=== PATIENT | male | born 1960 | race Caucasian/White ===

== ENCOUNTER 2019-03-07 18:31 | Emergency (ER) | payer SELFPAY ==
[~2019-03-07] VITALS: Ht 175.3 cm; Wt 90.7 kg
[2019-03-07] MEDS ORDERED: CLIN150C14 PO (18:52)
--- NOTE | 2019-03-07 18:52 | PHYS DOC ---
Adult General Chief Complaint Chief Complaint: INSECT BITE HPI HPI Patient is a 58 year old male presents to the ER with an insect bite to his abdomen. He states he was bit yesterday and has redness around the bite. States that he put alcohol on the wound, and his pain is 8 out of 10 in severity. Has not taken any other medicine at home for the pain. (JENNIFER HANSON APRN) Review of Systems Review of Systems Constitutional: Denies fever or chills [] Eyes: Denies change in visual acuity, redness, or eye pain [] HENT: Denies nasal congestion or sore throat [] Respiratory: Denies cough or shortness of breath [] Cardiovascular: No additional information not addressed in HPI [] GI: Denies abdominal pain, nausea, vomiting, bloody stools or diarrhea [] : Denies dysuria or hematuria [] Musculoskeletal: Denies back pain or joint pain [] Integument: Reports insect bite to the abdomen. Neurologic: Denies headache, focal weakness or sensory changes [] Endocrine: Denies polyuria or polydipsia [] Complete systems were reviewed and found to be within normal limits, except as documented in this note. (JENNIFER HANSON APRN) Current Medications Current Medications Current Medications Medications (Trade) Dose Ordered Sig/Lamont Start Time Stop Time Status Last Admin Dose Admin Clindamycin HCl (Cleocin) 450 mg 1X ONCE 03/07/19 19:00 03/07/19 19:01 DC 03/07/19 19:08 450 MG Ketorolac Tromethamine (Toradol Im) 30 mg 1X ONCE 03/07/19 19:00 03/07/19 19:01 DC 03/07/19 19:07 30 MG (SHADIA HUDSON MD) Allergies Allergies Allergies Coded Allergies Type Severity Reaction Last Updated Verified No Known Drug Allergies 03/07/19 No (SHADIA HUDSON MD) Physical Exam Physical Exam Constitutional: Well developed, well nourished, no acute distress, non-toxic appearance. [] HENT: Normocephalic, atraumatic, bilateral external ears normal, oropharynx moist, no oral exudates, nose normal. [] Eyes: PERRLA, EOMI, conjunctiva normal, no discharge. [] Neck: Normal range of motion, no tenderness, supple, no stridor. [] Cardiovascular:Heart rate regular rhythm, no murmur [] Lungs & Thorax: Bilateral breath sounds clear to auscultation [] Abdomen: Bowel sounds normal, soft, no tenderness, no masses, no pulsatile masses. [] Skin: erythema to the left lower abdomen about 8 cm in diameter, with the head of a insect bite. Back: No tenderness, no CVA tenderness. [] Extremities: No tenderness, no cyanosis, no clubbing, ROM intact, no edema. [] Neurologic: Alert and oriented X 3, normal motor function, normal sensory fu nction, no focal deficits noted. [] Psychologic: Affect normal, judgement normal, mood normal. [] (JENNIFER HANSON APRN) Current Patient Data Vital Signs Vital Signs Date Time Temp Pulse Resp B/P (MAP) Pulse Ox O2 Delivery O2 Flow Rate FiO2 03/07/19 18:54 97.9 74 16 143/83 (103) 97 Room Air 97.9 (SHADIA UHDSON MD) EKG EKG [] (JENNIFER HANSON APRN) Radiology/Procedures Radiology/Procedures [] (JENNIFER HANSON APRN) Course & Med Decision Making Course & Med Decision Making Pertinent Labs and Imaging studies reviewed. (See chart for details) Will give Toradol for pain, and Clindamycin script. Will vincent wound in ER. (JENNIFER HANSON APRN) Course & Med Decision Making Staff Physician Addendum: I was working in the ER during the course of this patient's visit. I was available for consultation as needed, but I was not directly involved in the care of this patient. (SHADIA HUDSON MD) Dragon Disclaimer Dragon Disclaimer This electronic medical record was generated, in whole or in part, using a voice recognition dictation system. (JENNIFER HANSON APRN) Departure Departure Impression: Primary Impression: Cellulitis Disposition: 01 HOME, SELF-CARE Condition: STABLE Patient Instructions: Cellulitis Additional Instructions: Thank you for visiting [facility]. We appreciate you trusting us with your care. If any additional problems come up don't hesitate to return to visit us. Please follow up with your primary care provider so they can plan additional care if needed and know about the problem that you had. If symptoms worsen come back to the Emergency Department. Any concerning symptoms that start such as chest pain, shortness of air, weakness or numbness on one side of the body, running high fevers or any other concerning symptoms return to the ER. If cellulitis gets worse please come back to ER. You have been prescribed an antibiotic today to help fight your infection. Please take all of the antibiotic as directed. If after 48 hours the infection is not improving, please return for more care. If the infection worsens, return to ER for additional care. Scripts Clindamycin Hcl (CLINDAMYCIN HCL) 150 Mg Capsule 450 MG PO TID for 7 Days, #63 CAP Prov: JENNIFER HANSON APRN 03/07/19 Problem Qualifiers Primary Impression: Cellulitis Site of cellulitis: trunk Site of cellulitis of trunk: abdominal wall Qualified Codes: L03.311 - Cellulitis of abdominal wall JENNIFER HANSON APRN Mar 07, 2019 18:52 SHADIA HUDSON MD Mar 08, 2019 04:57
[2019-03-07 18:54] VITALS: BP 143/83
[2019-03-07] MEDS ORDERED: CLINDAMYCIN HCL 150 MG CAPSULE. PO ONE (19:00)
[2019-03-07] MEDS ORDERED: KETOROLAC 60 MG/2 ML VIAL. IM ONE (19:00)
== END 2019-03-07 19:16 | disposition home or self-care (01) ==
LOC: ER 18:31
DX: L03.311 Cellulitis of abdominal wall (principal); W57.XXXA Bitten or stung by nonvenomous insect and other nonvenomous arthropods, initial encounter; Y93.89 Activity, other specified; Y92.89 Other specified places as the place of occurrence of the external cause; Y99.8 Other external cause status
CPT/HCPCS: 96372; 99283; J1885

== ENCOUNTER 2019-06-14 14:12 | Emergency (ER) | payer SELFPAY ==
[~2019-06-14] VITALS: Ht 170.2 cm; Wt 81.6 kg
[~2019-06-14 14:12] MED LIST: CLIN150C14 PO
[2019-06-14 14:24] VITALS: BP 181/90
[2019-06-14] MEDS ORDERED: HYDR-3164 PO (15:14)
[2019-06-14] MEDS ORDERED: CIPR7.5D RIGHT EAR (15:14)
[2019-06-14] MEDS ORDERED: AMOX500C PO (15:15)
--- NOTE | 2019-06-14 15:15 | PHYS DOC ---
Past Medical History Past Medical History: No Pertinent History (ARIAS YEE APRN) Past Surgical History: No Surgical History (ARIAS YEE APRN) Alcohol Use: None Drug Use: None (ARIAS YEE APRN) Attending Signature I have participated in the care of this patient and I have reviewed and agree with all pertinent clinical information above including history, exam, and recommendations. (ARASELI SEGOVIA MD) Adult General Chief Complaint Chief Complaint: EARACHE/EAR PAIN HPI HPI Patient is a 59 year old Male who presents with coughing, stuffy nose, right ear pain for the last 2 days. Patient denies fevers, nausea, vomiting, abdominal pain, cough. Patient rates his pain at a 8/10. (ARIAS YEE APRN) Review of Systems Review of Systems HENT: Right ear pain, nasal congestion or denies sore throat [] All other systems were reviewed and found to be within normal limits, except as documented in this note. (ARIAS YEE APRN) Allergies Allergies Allergies Coded Allergies Type Severity Reaction Last Updated Verified No Known Drug Allergies 03/07/19 No (ARASELI SEGOVIA MD) Physical Exam Physical Exam Constitutional: Well developed, well nourished, no acute distress, non-toxic appearance. [] HENT: Normocephalic, atraumatic, bilateral external ears normal, oropharynx moist, no oral exudates, nose normal. Right ear tenderness and swelling.[] Eyes: PERRLA, EOMI, conjunctiva normal, no discharge. [] Neck: Normal range of motion, no tenderness, supple, no stridor. [] Lungs & Thorax: Bilateral breath sounds clear to auscultation [] Abdomen: Bowel sounds normal, soft, no tenderness, no masses, no pulsatile masses. [] Skin: Warm, dry, no erythema, no rash. [] Neurologic: Alert and oriented X 3, normal motor function, normal sensory function, no focal deficits noted. [] Psychologic: Affect normal, judgement normal, mood normal. [] (ARIAS YEE APRN) Current Patient Data Vital Signs Vital Signs Date Time Temp Pulse Resp B/P (MAP) Pulse Ox O2 Delivery O2 Flow Rate FiO2 06/14/19 14:24 98.2 84 18 181/90 (120) 97 Room Air 98.2 (ARASELI SEGOVIA MD) EKG EKG [] (ARIAS YEE APRN) Radiology/Procedures Radiology/Procedures [] (ARIAS YEE APRN) Course & Med Decision Making Course & Med Decision Making Patient has right ear otitis media externa. I am unable to examine the tympanic due to swelling of the ear canal. No drainage is seen coming from the ear. Throat is pink, no swelling, or exudates. Afebrile. Lungs are clear to auscultation all lobes. Patient denies any nausea or vomiting. Speaks in full clear sentences. Skin pink warm and dry. Mucous membranes are moist. (ARIAS YEE APRN) Dragon Disclaimer Dragon Disclaimer This electronic medical record was generated, in whole or in part, using a voice recognition dictation system. (ARIAS YEE APRN) Departure Departure Impression: Primary Impression: Otitis externa Disposition: HOME, SELF-CARE Condition: STABLE Referrals: NO PCP (PCP) Patient Instructions: Otitis Externa Additional Instructions: Follow up with primary care provider. Use medications as prescribed. Scripts Amoxicillin (AMOXICILLIN) 500 Mg Capsule 1 CAP PO BID, #20 CAP Prov: ARIAS YEE APRN 06/14/19 Hydrocodone/Apap 5-325 (NORCO 5-325 TABLET) 1 Each Tablet 1 TAB PO PRN Q6HRS PRN for PAIN, #8 TAB 0 Refills Prov: ARIAS YEE APRN 06/14/19 Ciprofloxacin Hcl/Dexameth (CIPRODEX OTIC SUSPENSION) 7.5 Ml Drops.susp 4 DROP RIGHT EAR BID, #1 BOTTLE Prov: ARIAS YEE APRN 06/14/19 Problem Qualifiers Primary Impression: Otitis externa Otitis externa type: unspecified type Chronicity: acute Laterality: r ight Qualified Codes: H60.501 - Unspecified acute noninfective otitis externa, right ear ARIAS YEE APRN Jun 14, 2019 15:15 ARASELI SEGOVIA MD Jun 15, 2019 06:06
== END 2019-06-14 15:23 | disposition home or self-care (01) ==
LOC: ER 14:12
DX: H60.501 Unspecified acute noninfective otitis externa, right ear (principal)
CPT/HCPCS: 99283

== ENCOUNTER 2020-05-23 17:46 | Emergency (ER) | payer SELFPAY ==
[~2020-05-23] VITALS: Ht 167.6 cm; Wt 77.0 kg
[~2020-05-23 17:46] MED LIST changes: +AMOX500C PO; +CIPR7.5D RIGHT EAR; +HYDR-3164 PO
--- NOTE | 2020-05-23 19:18 | PHYS DOC ---
Past Medical History Past Medical History: No Pertinent History Past Surgical History: Appendectomy Smoking Status: Current Every Day Smoker Alcohol Use: None Drug Use: None General Adult EDM: Chief Complaint: UPPER EXTREMITY PAIN HPI: HPI: Patient is a 60 year old male who presents with 2 weeks of bilateral hand swelling, skin color change and coolness. 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 Patient states his only history is an appendectomy and smoker. He states that the pain is a cramping and slightly tingly feeling. He rates his pain a 10 out of 10 at this time. He states he is having a hard time even bending his fingers. Review of Systems: Review of Systems: Constitutional: Denies fever or chills. [] Eyes: Denies change in visual acuity. [] HENT: Denies nasal congestion or sore throat. [] Respiratory: Denies cough or shortness of breath. [] Cardiovascular: Denies chest pain. + Bilateral hand edema. [] GI: Denies abdominal pain, nausea, vomiting, bloody stools or diarrhea. [] : Denies dysuria. [] Musculoskeletal: Denies back pain or joint pain. + Bilateral hands [] Integument: Denies rash. + Bilateral hand skin color change. [] Neurologic: Denies headache, focal weakness or sensory changes. + Bilateral hand tingling and coolness. [] Endocrine: Denies polyuria or polydipsia. [] Lymphatic: Denies swollen glands. [] Psychiatric: Denies depression or anxiety. [] Heart Score: Risk Factors: Risk Factors: DM, Current or recent (<one month) smoker, HTN, HLP, family history of CAD, obesity. Risk Scores: Score 0 - 3: 2.5% MACE over next 6 weeks - Discharge Home Score 4 - 6: 20.3% MACE over next 6 weeks - Admit for Clinical Observation Score 7 - 10: 72.7% MACE over next 6 weeks - Early Invasive Strategies Allergies: Allergies: Allergies Coded Allergies Type Severity Reaction Last Updated Verified No Known Drug Allergies 03/07/19 No Physical Exam: PE: Constitutional: Well developed, well nourished, no acute distress, non-toxic appearance. [] HENT: Normocephalic, atraumatic, bilateral external ears normal, oropharynx moist, no oral exudates, nose normal. [] Eyes: PERRLA, EOMI, conjunctiva normal, no discharge. [] Neck: Normal range of motion, no tenderness, supple, no stridor. [] Cardiovascular:Heart rate regular rhythm, no murmur [] Lungs & Thorax: Bilateral breath sounds clear to auscultation [] Abdomen: Bowel sounds normal, soft, no tenderness, no masses, no pulsatile masses. [] Skin: Warm, dry, no erythema, no rash. Bilateral hands dusky in color. [] Back: No tenderness, no CVA tenderness. [] Extremities: No tenderness, no cyanosis, no clubbing, ROM intact, bilateral hand dusky, 2+ edema. [] Neurologic: Alert and oriented X 3, normal motor function, normal sensory function, no focal deficits noted. Bilateral hand tingling. [] Psychologic: Affect normal, judgement normal, mood normal. [] Current Patient Data: Vital Signs: Vital Signs Date Time Temp Pulse Resp B/P (MAP) Pulse Ox O2 Delivery O2 Flow Rate FiO2 05/23/20 18:00 98.0 80 18 126/76 (93) 99 Room Air 98.0 EKG: EKG: [] Radiology/Procedures: Radiology/Procedures: [] Impression: [facility] [address] [place], [place] [id number] IMAGING REPORT Signed PATIENT: LEOBARDO IBANEZ ACCOUNT: [id number] : 1960 LOCATION: ER AGE: 60 SEX: M EXAM STATUS: REG ER ORD. PHYSICIAN: ARIAS YEE APRN REASON: dusky, swelling PROCEDURE: UPPER EXT ARTERIAL BILAT INDICATION: Reason: dusky, swelling / Spl. Instructions: / History: COMPARISON: None. FINDINGS: Spectral Doppler, color and grayscale ultrasound images are obtained of the bilateral arm arterial system. Vascular flow seen in the bilateral subclavian, axillary, brachial, radial and ulnar arteries without occlusion or high-grade stenosis. Calcific atherosclerosis is seen. IMPRESSION: * No high-grade stenosis or occlusion of the major bilateral arm arterial structures. Electronically signed by: Nader Car MD (05/23/2020 8:32 PM) [id number] DICTATED and SIGNED BY: NADER CAR MD DATE: 05/23/202031 Course & Med Decision Making: Course & Med Decision Making Pertinent Labs and Imaging studies reviewed. (See chart for details) See HPI. Bilateral hands 2+ swelling, dusky in color, radial pulses present, cap refill sluggish. No other swelling of the arms. Alert and oriented x4. Ambulatory with a steady gait. Speaks in full clear sentences. She has continue to use his hands and work. He states that it is hard for him to make a tight fist due to the swelling and some of the pain. He does state that the pain at times will be intermittent. There is no tenderness with examination. Ultrasound shows no acute findings. Blood work is unremarkable. Apossible diagnosis is Thoracic outlet syndrome. I have spoken to Dr Fang concerning this patients findings and care plan. He states to have him follow up with a primary care provider. [] Matthew Disclaimer: Matthew Disclaimer: This electronic medical record was generated, in whole or in part, using a voice recognition dictation system. Departure Departure Impression: Primary Impression: Bilateral hand swelling Disposition: HOME, SELF-CARE Condition: STABLE Referrals: NO PCP (PCP) Patient Instructions: Thoracic Outlet Syndrome with [facility] Additional Instructions: Follow-up with a primary care provider as soon as possible. Read through the education I have provided and try some of the exercises to help. Take me dication as prescribed and with food. Remember this medication can make you sleepy so do not work or drive with it. Scripts Ibuprofen (IBUPROFEN) 600 Mg Tablet 600 MG PO PRN Q6HRS PRN for INFLAMMATION, #20 TAB Prov: ARIAS YEE APRN 05/23/20 Hydrocodone/Apap 5-325 (NORCO 5-325 TABLET) 1 Each Tablet 1 TAB PO PRN Q6HRS PRN for PAIN, #10 TAB 0 Refills Prov: ARIAS YEE APRN 05/23/20 Justicifation of Admission Dx: Justifications for Admission: Justification of Admission Dx: N/A ARIAS YEE APRN May 23, 2020 19:17
[2020-05-23 19:23] LABS: BASO % 1 % (0-3); EOS # 0.3 x10^3/uL (0.0-0.7); EOS % 4 % (0-3); HEMATOCRIT 42.5 % (39.0-53.0); HEMOGLOBIN 14.5 g/dL (13.0-17.5); LYMPH # 1.9 x10^3/uL (1.0-4.8); LYMPH % 26 % (24-48); MEAN CORPUSCULAR HEMOGLOBIN 32 pg (25-35); MEAN CORPUSCULAR HGB CONC 34 g/dL (31-37); MEAN CORPUSCULAR VOLUME 94 fL (79-100); MONO # 0.7 x10^3/uL (0.0-1.1); MONO % 9 % (0-9); NEUT # 4.4 x10^3/uL (1.8-7.7); NEUT % 60 % (31-73); PLATELET COUNT 216 x10^3/uL (140-400); RED BLOOD COUNT 4.54 x10^6/uL (4.30-5.70); RED CELL DISTRIBUTION WIDTH 13.9 % (11.5-14.5); WHITE BLOOD COUNT 7.3 x10^3/uL (4.0-11.0)
[2020-05-23 19:30] LABS: PROTHROMBIN TIME PATIENT 13.3 SEC (11.7-14.0)
[2020-05-23 19:32] LABS: CALCIUM 8.2 mg/dL (8.5-10.1); CREATININE 0.9 mg/dL (0.7-1.3); GFR 86.4; POTASSIUM 3.7 mmol/L (3.5-5.1)
[2020-05-23 19:38] LABS: ALBUMIN 3.1 g/dL (3.4-5.0); ALBUMIN/GLOBULIN RATIO 1.2 (1.0-1.7); C-REACTIVE PROTEIN 2.4 mg/L (0-3.3); TOTAL BILIRUBIN 0.5 mg/dL (0.2-1.0); TOTAL PROTEIN 5.7 g/dL (6.4-8.2)
[2020-05-23 20:00] VITALS: BP 131/80
[2020-05-23] MEDS ORDERED: fentaNYL PF VIAL 100 MCG/2 ML VIAL IVP ONE (20:00)
--- NOTE | 2020-05-23 20:35 | RAD ---
INDICATION: Reason: dusky, swelling / Spl. Instructions: / History: COMPARISON: None. FINDINGS: Spectral Doppler, color and grayscale ultrasound images are obtained of the bilateral arm arterial system. Vascular flow seen in the bilateral subclavian, axillary, brachial, radial and ulnar arteries without occlusion or high-grade stenosis. Calcific atherosclerosis is seen. IMPRESSION: * No high-grade stenosis or occlusion of the major bilateral arm arterial structures. Electronically signed by: Himanshu Larkin MD (05/23/2020 8:32 PM) [id number]
[2020-05-23] MEDS ORDERED: HYDR-3164 PO (20:54)
[2020-05-23] MEDS ORDERED: IBUP-1007 PO (20:54)
== END 2020-05-23 21:25 | disposition home or self-care (01) ==
LOC: ER 17:46
DX: R60.0 Localized edema (principal); R20.2 Paresthesia of skin; F17.200 Nicotine dependence, unspecified, uncomplicated; Z90.89 Acquired absence of other organs
CPT/HCPCS: 36415; 80053; 85025; 85610; 86140; 93930; 96374; 99284; J3010